=== PATIENT | male | born 1990 | race Caucasian/White ===

== ENCOUNTER 2016-09-03 10:02 | Emergency (ER) | payer OTHER ==
[2016-09-03 10:16] VITALS: BP 142/75
--- NOTE | 2016-09-03 10:22 | UC ---
Laceration HPI - HPI Summary HPI Summary: 26M presents with left pinky finger laceration today. He was cutting a frozen bagel and using a knife not intended for cutting when he cut his pinky finger. He is right handed. His last tetanus was four years ago. - History Of Current Complaint Chief Complaint: UCLaceration Stated Complaint: FINGER LACERATION Time Seen by Provider: 09/03/16 10:17 - Allergies/Home Medications Allergies/Adverse Reactions: Allergies Allergy/AdvReac Type Severity Reaction Status Date / Time No Known Allergies Allergy Verified 08/25/15 09:00 PMH/Surg Hx/FS Hx/Imm Hx Endocrine History Of: Denies: Diabetes, Thyroid Disease Cardiovascular History Of: Reports: Hypertension - NO MEDS YET Denies: Cardiac Disorders, Pacemaker/ICD Respiratory History Of: Reports: Asthma Denies: COPD GI/ History Of: Denies: Ulcer Psychological History Of: Reports: Depression - has meds, not taking it - Surgical History Surgical History: Yes Surgery Procedure, Year, and Place: tonsils - Family History Known Family History: Negative: Cardiac Disease - Social History Alcohol Use: Occasionally Alcohol Amount: ABOVE AVERAGE Substance Use Type: None Smoking Status (MU): Light Every Day Tobacco Smoker Type: Cigarettes Have You Smoked in the Last Year: Yes Household Exposure Type: Cigarettes - Immunization History Most Recent Tetanus Shot: 2012 Review of Systems Constitutional: Negative Skin: Other - laceration Respiratory: Negative Cardiovascular: Negative All Other Systems Reviewed And Are Negative: Yes Physical Exam Triage Information Reviewed: Yes Appearance: Well-Appearing Vital Signs: Initial Vital Signs Temp 97.6 F 09/03/16 10:06 Pulse 67 09/03/16 10:06 Resp 16 09/03/16 10:06 BP 142/75 09/03/16 10:06 Pulse Ox 99 09/03/16 10:06 Eyes: Positive: Conjunctiva Clear ENT: Positive: Normal ENT inspection, Pharynx normal, Nasal drainage Respiratory: Positive: Lungs clear, Normal breath sounds Cardiovascular: Positive: RRR Musculoskeletal: Positive: Strength Intact - of left hand Skin: Positive: Other - 1.5 cm laceration of left pinky finger on distal phalax Laceration Repair - Laceration Repair 1 Description: Linear Laceration Size After Repair: Length (cm) - 1.5 cn Contamination/FB Removal: none Type Injection: Digital Anesthesia Used: 1.0% Lido Cleansing Completed Via Routine Prep: Yes Irrigation With Pressure Irrigation Device: Yes Closure Material: Sutures Closure Method: Single Layer Suture Of: Skin Suture Type: Prolene - 4-0, 3 sutures placed Laceration Course/Dx - Course/Dx Course Of Treatment: 26 M presents with left pinky laceration. tetanus up to date. Full ROM. denies any foreign body, cleaned area and placed 3 suture with prolene 4-0, - Differential Dx - Laceration/Wound Differental Diagnoses: Abrasion, Avulsion, Laceration Provider Diagnoses: laceration of left pinky finger Discharge - Discharge Plan Condition: Good Disposition: HOME Patient Education Materials: Care For Your Stitches (ED) Referrals: Jae Handy MD [Primary Care Provider] - Additional Instructions: Take Tylenol or ibuprofen for pain Keep area clean and dry for 48 hours Return to ED or primary in 10-14 days to have sutures removed Return to ED if develop signs of infection such as fever, spreading redness, or pus.
[2016-09-03] MEDS ORDERED: Lidocaine 1% MPF* 2 ML VIAL ONE (10:26)
== END 2016-09-03 11:25 | disposition home or self-care (01) ==
LOC: UCEAST 10:02
DX: S61.217A Laceration without foreign body of left little finger without damage to nail, initial encounter (principal); W26.0XXA Contact with knife, initial encounter; Y93.G1 Activity, food preparation and clean up; Y92.9 Unspecified place or not applicable; F32.9 Major depressive disorder, single episode, unspecified; F10.99 Alcohol use, unspecified with unspecified alcohol-induced disorder; F17.210 Nicotine dependence, cigarettes, uncomplicated; Z91.14 Patient's other noncompliance with medication regimen
CPT/HCPCS: 12001; 99211; G0463

== ENCOUNTER 2017-01-05 23:41 | Emergency (ER) | payer OTHER ==
[2017-01-06] MEDS ORDERED: Haloperidol INJ IV/IM* 5 MG/ML AMP ONE (00:30)
[2017-01-06] MEDS ORDERED: diPHENhydraMINE IV* 50 MG/ML 1 ml VIAL (BENADRYL) ONE (00:30)
[2017-01-06] MEDS ORDERED: LORazepam INJ* 2 MG/ML 1 ML VIAL ONE (00:30)
[2017-01-06 02:05] LABS: Hematocrit 42 % (42-52); Mean Corpuscular HGB Conc 34 g/dl (31-36); Mean Corpuscular Hemoglobin 29 pg (27-31); Mean Corpuscular Volume 86 fL (80-94); Mean Platelet Volume 7 um3 (7.4-10.4); Red Blood Count 4.87 10^6/ul (4.0-5.4); Red Cell Distribution Width 14 % (10.5-15); White Blood Count 7.9 10^3/ul (3.5-10.8)
[2017-01-06 02:13] LABS: ALT 130 U/L (7-52); Albumin 4.5 g/dL (3.2-5.2); Alkaline Phosphatase 82 U/L (34-104); BUN/Creatinine Ratio 9.9 (8-20); Blood Urea Nitrogen 10 mg/dL (6-24); CO2 Carbon Dioxide 18 mmol/L (22-32); Chloride 105 mmol/L (101-111); EGFR African American 116.7 (>60); EGFR Non-African American 90.8 (>60); Globulin 3.5 g/dL (2-4); Glucose 112 mg/dL (70-100); Sodium 138 mmol/L (133-145)
[2017-01-06 02:37] LABS: Acetaminophen < 15 mcg/mL; Alcohol 236 mg/dL (<10); Salicylate < 2.50 mg/dL (<30)
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
== END 2017-01-06 06:15 | disposition home or self-care (01) ==
LOC: ED 23:41
DX: F10.129 Alcohol abuse with intoxication, unspecified (principal); Y90.7 Blood alcohol level of 200-239 mg/100 ml; I10 Essential (primary) hypertension; J45.909 Unspecified asthma, uncomplicated; G47.30 Sleep apnea, unspecified; K21.9 Gastro-esophageal reflux disease without esophagitis; F32.9 Major depressive disorder, single episode, unspecified; F17.210 Nicotine dependence, cigarettes, uncomplicated
CPT/HCPCS: 36415; 80053; 80320; 80329; 84443; 85025; 93005; 96372; 99285; G0480; J1200; J1630; J2060

== ENCOUNTER 2017-07-22 18:48 | Inpatient (IN) | payer OTHER ==
[2017-07-22] MEDS ORDERED: diPHENhydraMINE IV* 50 MG/ML 1 ml VIAL (BENADRYL) ONE (18:55)
[2017-07-22] MEDS ORDERED: Haloperidol INJ IV/IM* 5 MG/ML AMP ONE (18:55)
[2017-07-22] MEDS ORDERED: LORazepam INJ* 2 MG/ML 1 ML VIAL ONE (18:55)
[2017-07-22] MEDS ORDERED: diPHENhydraMINE IV* 50 MG/ML 1 ml VIAL (BENADRYL) IM ONE (18:58)
[2017-07-22] MEDS ORDERED: Haloperidol INJ IV/IM* 5 MG/ML AMP IM ONE (18:58)
[2017-07-22] MEDS ORDERED: LORazepam INJ* 2 MG/ML 1 ML VIAL IM ONE (18:58)
[2017-07-22 20:13] LABS: Hematocrit 41 % (42-52); Mean Corpuscular HGB Conc 34 g/dl (31-36); Mean Corpuscular Hemoglobin 30 pg (27-31); Mean Corpuscular Volume 88 fL (80-94); Mean Platelet Volume 7 um3 (7.4-10.4); Red Blood Count 4.61 10^6/ul (4.0-5.4); Red Cell Distribution Width 14 % (10.5-15); White Blood Count 9.7 10^3/ul (3.5-10.8)
[2017-07-22 20:26] LABS: ALT 229 U/L (7-52); Albumin 4.6 g/dL (3.2-5.2); Alkaline Phosphatase 85 U/L (34-104); BUN/Creatinine Ratio 11.5 (8-20); Blood Urea Nitrogen 12 mg/dL (6-24); CO2 Carbon Dioxide 19 mmol/L (22-32); Chloride 100 mmol/L (101-111); EGFR African American 111.9 (>60); Globulin 3.6 g/dL (2-4); Glucose 109 mg/dL (70-100); Sodium 132 mmol/L (133-145); Total Protein 8.2 g/dL (6.4-8.9)
[2017-07-22 20:38] LABS: Acetaminophen < 15 mcg/mL; Alcohol 214 mg/dL (<10); Salicylate < 2.50 mg/dL (<30)
[2017-07-22 20:53] LABS: TSH (Thyroid Stimulating Horm) 1.38 mcIU/mL (0.34-5.60)
[2017-07-22 21:02] LABS: AST 119 U/L (13-39); Anion Gap 13 mmol/L (2-11); Potassium 3.9 mmol/L (3.5-5.0)
--- NOTE | 2017-07-22 22:43 | ED ---
Renny Robles Thomas, scribed for Chester Page MD on 07/22/17 at 1904 . Laceration/Wound HPI - HPI Summary HPI Summary: The patient is a 27 year old male brought in by ambulance to the ED with a laceration to the left hand. Patient refuses to let the ambulance take a look at the injury. Prior to arrival, patient acted erratically and was violent. HPI limited due to level 5 caveat: Agitation/Uncooperative - History of Current Complaint Stated Complaint: 941 Time Seen by Provider: 07/22/17 18:57 Hx Obtained From: EMS Hx From Patient Unobtainable Due To: Other - Agitation, uncooperative Mechanism of Injury: Sharp/Blunt Trauma - lacteration to left hand - Allergy/Home Medications Allergies/Adverse Reactions: Allergies Allergy/AdvReac Type Severity Reaction Status Date / Time No Known Allergies Allergy Verified 08/25/15 09:00 PMH/Surg Hx/FS Hx/Imm Hx Previously Healthy: No - PMHx limited due to level 5 caveat: Agitation/ Uncooperative Endocrine/Hematology History: Denies: Hx Diabetes, Hx Thyroid Disease Cardiovascular History: Reports: Hx Hypertension - NO MEDS YET Denies: Hx Pacemaker/ICD, Other Cardiovascular Problems/Disorders Respiratory History: Reports: Hx Asthma, Hx Sleep Apnea - R/T TONSILS Denies: Hx Chronic Obstructive Pulmonary Disease (COPD) GI History: Reports: Hx Gastroesophageal Reflux Disease - ON MEDS Denies: Hx Ulcer, Other GI Disorders Musculoskeletal History: Reports: Other Musculoskeletal History - LEFT RADIAL HEAD SPIDER FX CURRENTLY Sensory History: Reports: Hx Contacts or Glasses - CONTACTS Denies: Hx Hearing Aid Opthamlomology History: Reports: Hx Contacts or Glasses - CONTACTS Neurological History: Denies: Other Neuro Impairments/Disorders Psychiatric History: Reports: Hx Depression - has meds, not taking it Denies: Hx Eating Disorder, Hx Panic Disorder, Hx of Violent Episodes Against Others - Surgical History Surgery Procedure, Year, and Place: tonsils Hx Anesthesia Reactions: No Infectious Disease History: Denies: Hx Clostridium Difficile, Hx Hepatitis, Hx Human Immunodeficiency Virus (HIV), Hx of Known/Suspected MRSA, Hx Shingles, Hx Tuberculosis, Hx Known/ Suspected VRE, Hx Known/Suspected VRSA, History Other Infectious Disease, Traveled Outside the [place] in Last 30 Days - Family History Known Family History: Negative: Cardiac Disease - Social History Alcohol Use: Occasionally Alcohol Amount: ABOVE AVERAGE Hx Substance Use: No Substance Use Type: Reports: None Hx Tobacco Use: Yes Smoking Status (MU): Light Every Day Tobacco Smoker Type: Cigarettes Have You Smoked in the Last Year: Yes Review of Systems - ROS Summary Review of Systems Summary: ROS limited due to level 5 caveat: Agitation/Uncooperative Positive: Other - laceration to left hand All Other Systems Reviewed And Are Negative: No Physical Exam - Summary Physical Exam Summary: PE limited due to level 5 caveat: Agitation/Uncooperative Triage Information Reviewed: Yes Vital Signs On Initial Exam: Initial Vitals Resp 22 07/22/17 18:55 Vital Signs Reviewed: No Completion Of Physical Exam Limited Due To: Level 5, Other - Agitation/ uncooperative Diagnostics - Vital Signs Vital Signs Temp Pulse Resp BP Pulse Ox 07/22/17 22:30 66 21 131/71 67 07/22/17 22:00 106 20 122/80 100 07/22/17 21:30 108 21 121/61 100 07/22/17 21:00 116 20 136/66 98 07/22/17 20:30 118 21 126/57 98 07/22/17 20:00 117 21 128/59 100 07/22/17 19:50 121 21 133/56 99 07/22/17 19:49 98.3 F 119 16 133/56 100 07/22/17 19:30 117 21 133/76 100 07/22/17 19:29 117 128/63 100 07/22/17 19:28 70 100 07/22/17 18:55 22 - Laboratory Lab Results: Lab Results 07/22/17 07/22/17 Range/Units 20:02 20:02 WBC 9.7 (3.5-10.8) 10^3/ul RBC 4.61 (4.0-5.4) 10^6/ul Hgb 14.0 (14.0-18.0) g/dl Hct 41 L (42-52) % MCV 88 (80-94) fL MCH 30 (27-31) pg MCHC 34 (31-36) g/dl RDW 14 (10.5-15) % Plt Count 314 (150-450) 10^3/ul MPV 7 L (7.4-10.4) um3 Neut % (Auto) 64.9 (38-83) % Lymph % (Auto) 26.9 (25-47) % Wise % (Auto) 5.4 (1-9) % Eos % (Auto) 1.7 (0-6) % Baso % (Auto) 1.1 (0-2) % Absolute Neuts (auto) 6.3 (1.5-7.7) 10^3/ul Absolute Lymphs (auto) 2.6 (1.0-4.8) 10^3/ul Absolute Monos (auto) 0.5 (0-0.8) 10^3/ul Absolute Eos (auto) 0.2 (0-0.6) 10^3/ul Absolute Basos (auto) 0.1 (0-0.2) 10^3/ul Absolute Nucleated RBC 0.01 10^3/ul Nucleated RBC % 0.1 Sodium 132 L (133-145) mmol/L Potassium 3.9 (3.5-5.0) mmol/L Chloride 100 L (101-111) mmol/L Carbon Dioxide 19 L (22-32) mmol/L Anion Gap 13 H (2-11) mmol/L BUN 12 (6-24) mg/dL Creatinine 1.04 (0.67-1.17) mg/dL Est GFR ( Amer) 111.9 (>60) Est GFR (Non-Af Amer) 87.0 (>60) BUN/Creatinine Ratio 11.5 (8-20) Glucose 109 H (70-100) mg/dL Calcium 9.0 (8.6-10.3) mg/dL Total Bilirubin 0.40 (0.2-1.0) mg/dL AST 119 H (13-39) U/L ALT 229 H (7-52) U/L Alkaline Phosphatase 85 (34-104) U/L Total Protein 8.2 (6.4-8.9) g/dL Albumin 4.6 (3.2-5.2) g/dL Globulin 3.6 (2-4) g/dL Albumin/Globulin Ratio 1.3 (1-3) TSH 1.38 (0.34-5.60) mcIU/mL Salicylates < 2.50 (<30) mg/dL Acetaminophen < 15 mcg/mL Serum Alcohol 214 H (<10) mg/dL Result Diagrams: 07/22/17 20:02 07/22/17 20:02 Lab Statement: Any lab studies that have been ordered have been reviewed, and results considered in the medical decision making process. Laceration Repair Course/Dx - Course Course Of Treatment: LACERATION REPAIN ATTEMPTED OF FINGER LACERATIONS. INITIALLY PATIENT AGREED TO LACERATION HOWEVER, AFTER CLEANING THE WOUND, HE REFUSED SUTURING. HE BECAME AGITATED AND IT WAS UNSAFE FOR THE PATIENT AND STAFF TO FURTHER ATTEMPT SUTURING AFTER THE PATIENT REFUSED. HE STATED "IT WILL HEAL ITSELF". MHE PENDING AT SHIFT CHANGE. ABX OINTMENT AND DRESSING PLACED ON THE WOUND. - Clinical Impression Provider Diagnoses: Mental health problem, Alcohol intoxication, Laceration of left ring finger, Laceration of left little finger - Critical Care Time Critical Care Time: 75-104 min Discharge - Discharge Plan Condition: Stable Disposition: OTHER Discharge Disposition Comment: . Referrals: Jae Handy MD [Primary Care Provider] - The documentation as recorded by the Renny rothman Thomas accurately reflects the service I personally performed and the decisions made by me, Chester Page MD.
[2017-07-23] MEDS ORDERED: Haloperidol INJ IV/IM* 5 MG/ML AMP ONE (01:20)
[2017-07-23] MEDS ORDERED: LORazepam INJ* 2 MG/ML 1 ML VIAL ONE (01:20)
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
[2017-07-23] MEDS ORDERED: Acetaminophen TAB* 325 MG PO PRN (11:47)
[2017-07-23] MEDS ORDERED: Haloperidol TAB* 5 MG PO PRN (11:51)
[2017-07-23] MEDS ORDERED: Cephalexin CAP* 500 MG PO ONE (12:18)
[2017-07-23] MEDS ORDERED: Tetan/Diph/Pertus SYR(Tdap)* 0.5 ML SYR(BOOSTRIX) use SYR IM ONE (12:30)
[2017-07-23] MEDS: Thiamine TAB* 100 MG TAB PO SCH (12:37)
--- NOTE | 2017-07-23 13:38 | ED ---
Progress - Consult/PCP Time Called: 09:25 Course/Dx - Course Course Of Treatment: LACERATION REPAIN ATTEMPTED OF FINGER LACERATIONS. INITIALLY PATIENT AGREED TO LACERATION HOWEVER, AFTER CLEANING THE WOUND, HE REFUSED SUTURING. HE BECAME AGITATED AND IT WAS UNSAFE FOR THE PATIENT AND STAFF TO FURTHER ATTEMPT SUTURING AFTER THE PATIENT REFUSED. HE STATED "IT WILL HEAL ITSELF". MHE PENDING AT SHIFT CHANGE. ABX OINTMENT AND DRESSING PLACED ON THE WOUND. - Diagnoses Provider Diagnoses: Mental health problem, Alcohol intoxication, Laceration of left ring finger, Laceration of left little finger - Critical Care Time Critical Care Time: 75-104 min
--- NOTE | 2017-07-23 13:49 | RAD ---
INDICATION: Laceration to the left fourth finger proximal interphalangeal joint TECHNIQUE: 3 views of the left fourth finger were obtained. FINDINGS: The bones are normal alignment. Joint spaces appear maintained. No fracture is seen. No subcutaneous foreign body is seen. IMPRESSION: NORMAL RADIOGRAPHIC SERIES OF THE LEFT RING FINGER.
[2017-07-23 13:55] LABS: Urine Bacteria Absent (Absent); Urine Bilirubin Negative (Negative); Urine Glucose Negative (Negative); Urine Nitrite Negative (Negative)
[2017-07-23 13:57] LABS: Benzodiazepine Urine Screen None Detected (None Detect)
--- NOTE | 2017-07-23 14:06 | ED ---
Progress - Consult/PCP Time Called: 09:25 Course/Dx - Course Course Of Treatment: LACERATION REPAIRED. LEFT RING FINGER. UNABLE TO DETERMINE IF THERE IS TENDON INVOLVEMENT. FINGER FROM. NO SENSATION DEFICIT. CAP REFILL NL. LAC REPAIR;. LIDOCAINE 1%. #9 5-0 PROLENE. SHURCLENS/STERILE SALINE IRRIGATED WITH 30ML. GIVEN TDAP. X-RAY NORMAL. F/U HANDS/ORTHO. - Diagnoses Provider Diagnoses: Mental health problem, Alcohol intoxication, Laceration of left ring finger, Laceration of left little finger
[2017-07-23] MEDS: Nicotine Inhaler* 10 MG AMP INH PRN (17:44)
[2017-07-23] MEDS: Nicotine GUM* 2 MG PO PRN (17:44)
[2017-07-23] MEDS: Diazepam TAB(*) 10 MG PO PRN (18:06)
--- NOTE | 2017-07-23 18:37 | CONSULT ---
Consult Consult: Mr. Valentino Lott presented to the ED by EMS yesterday intoxicated and threatening suicide. He was gradually medically cleared and had a MHE. They felt that he was appropriate for involuntary admission and he is being admitted in stable condition with a diagnosis of depression with suicidal ideation.
[2017-07-23] MEDS: Omeprazole CAP* 20 MG PO SCH (21:00)
[2017-07-24] MEDS: Diazepam TAB(*) 10 MG PO PRN (01:46)
[2017-07-24] MEDS ORDERED: LORazepam TAB(*) 1 MG ONE (06:17)
[2017-07-24] MEDS ORDERED: LORazepam IM 0-6 mg for WAM protocol IM SCH (07:00)
[2017-07-24] MEDS: Thiamine TAB* 100 MG TAB PO SCH (09:40)
[2017-07-24] MEDS: Omeprazole CAP* 20 MG PO SCH ×2 (09:40→20:36)
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
[2017-07-24] MEDS: Nicotine Inhaler* 10 MG AMP INH PRN ×4 (13:06→20:09)
[2017-07-24] MEDS: Nicotine GUM* 2 MG PO PRN ×4 (13:06→21:54)
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
[2017-07-25] MEDS: Nicotine Inhaler* 10 MG AMP INH PRN ×6 (00:05→23:12)
[2017-07-25] MEDS: Nicotine GUM* 2 MG PO PRN ×4 (02:12→21:07)
[2017-07-25] MEDS: LORazepam PO 0-6 for WAM protocol PO SCH (02:55)
[2017-07-25] MEDS: Thiamine TAB* 100 MG TAB PO SCH (09:32)
[2017-07-25] MEDS: Omeprazole CAP* 20 MG PO SCH (09:32)
[2017-07-25 09:48] LABS: Albumin 4.6 g/dL (3.2-5.2); BUN/Creatinine Ratio 11.5 (8-20); Calcium 9.9 mg/dL (8.6-10.3); EGFR African American 122.7 (>60); EGFR Non-African American 95.4 (>60); Globulin 3.4 g/dL (2-4); Potassium 3.6 mmol/L (3.5-5.0); Total Bilirubin 0.8 mg/dL (0.2-1.0)
[2017-07-25] MEDS: Diazepam TAB(*) 10 MG PO PRN (14:02)
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
[2017-07-25] MEDS: Gabapentin CAP(*) 300 MG PO SCH (20:45)
[2017-07-26] MEDS: Al Hydrox/Mg Hydrox/Simet LIQ* 30 ML UDC PO PRN (02:19)
[2017-07-26] MEDS: Diazepam TAB(*) 10 MG PO PRN (02:19)
[2017-07-26] MEDS: Thiamine TAB* 100 MG TAB PO SCH (09:05)
[2017-07-26] MEDS: Nicotine Inhaler* 10 MG AMP INH PRN ×5 (10:24→21:13)
[2017-07-26] MEDS: Nicotine GUM* 2 MG PO PRN ×4 (10:24→21:13)
--- NOTE | 2017-07-26 11:37 | PN ---
MHU: Group Therapy Note - Service Type Service Type: 19115 Group Psychotherapy - Cognitive Behavioral Group Therapy ( CBT):Patient was attentive and participatory in CBT programming this morning, and remained in good behavioral control. Patient expressed positive insights regarding relevant treatment interventions and goals.
[2017-07-26] MEDS: LORazepam PO 0-6 for WAM protocol PO SCH (12:17)
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
[2017-07-26] MEDS: Bacitracin OINTMENT* 0.5% 0.5 oz TUBE TOPICAL SCH ×2 (14:12→22:29)
--- NOTE | 2017-07-26 16:21 | PN ---
MHU: Group Therapy Note - Service Type Service Type: 32736 Group Psychotherapy - Medication Education Group: Patient was attentive and participatory in group, and remained in good behavioral control. Patient expressed positive insights regarding relevant treatment interventions. Patient stated understanding of material discussed and had appropriate questions.
[2017-07-26] MEDS: Gabapentin CAP(*) 300 MG PO SCH (21:13)
[2017-07-27] MEDS: Nicotine Inhaler* 10 MG AMP INH PRN ×6 (08:41→21:10)
[2017-07-27] MEDS: Nicotine GUM* 2 MG PO PRN ×6 (08:41→21:10)
[2017-07-27] MEDS: Thiamine TAB* 100 MG TAB PO SCH (08:42)
[2017-07-27] MEDS: Bacitracin OINTMENT* 0.5% 0.5 oz TUBE TOPICAL SCH ×3 (09:53→20:45)
[2017-07-27] MEDS: LORazepam PO 0-6 for WAM protocol PO SCH (13:08)
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
[2017-07-27] MEDS: cloNIDine TAB* 0.1 MG PO SCH ×2 (15:25→20:45)
[2017-07-27] MEDS: Al Hydrox/Mg Hydrox/Simet LIQ* 30 ML UDC PO PRN (16:16)
[2017-07-27 17:45] LABS: Albumin 4.7 g/dL (3.2-5.2); BUN/Creatinine Ratio 12.8 (8-20); Calcium 9.7 mg/dL (8.6-10.3); EGFR African American 125.8 (>60); EGFR Non-African American 97.8 (>60); Globulin 3.5 g/dL (2-4); Potassium 4.2 mmol/L (3.5-5.0); Total Bilirubin 0.4 mg/dL (0.2-1.0); Total Protein 8.2 g/dL (6.4-8.9)
[2017-07-27] MEDS: Gabapentin CAP(*) 300 MG PO SCH (20:45)
[2017-07-28] MEDS: Gabapentin CAP(*) 300 MG PO PRN (04:25)
[2017-07-28] MEDS: Nicotine Inhaler* 10 MG AMP INH PRN ×7 (07:35→22:07)
[2017-07-28] MEDS: Nicotine GUM* 2 MG PO PRN ×7 (07:35→22:07)
[2017-07-28] MEDS: cloNIDine TAB* 0.1 MG PO SCH ×2 (08:48→20:15)
[2017-07-28] MEDS: Thiamine TAB* 100 MG TAB PO SCH (08:48)
[2017-07-28] MEDS: Bacitracin OINTMENT* 0.5% 0.5 oz TUBE TOPICAL SCH ×2 (09:01→13:05)
[2017-07-28] MEDS: Al Hydrox/Mg Hydrox/Simet LIQ* 30 ML UDC PO PRN (17:27)
[2017-07-28] MEDS: Gabapentin CAP(*) 300 MG PO SCH (20:14)
[2017-07-28] MEDS: LORazepam PO 0-6 for WAM protocol PO SCH (23:30)
[2017-07-29] MEDS: Bacitracin OINTMENT* 0.5% 0.5 oz TUBE TOPICAL SCH ×3 (00:56→13:46)
[2017-07-29] MEDS: Nicotine Inhaler* 10 MG AMP INH PRN ×7 (05:20→23:23)
[2017-07-29] MEDS: cloNIDine TAB* 0.1 MG PO SCH ×2 (08:55→21:22)
[2017-07-29] MEDS: Thiamine TAB* 100 MG TAB PO SCH (08:55)
[2017-07-29] MEDS: Nicotine GUM* 2 MG PO PRN ×6 (10:02→23:23)
[2017-07-29] MEDS ORDERED: Ibuprofen TAB* 600 MG PO PRN (14:34)
[2017-07-29] MEDS: Cephalexin CAP* 500 MG PO SCH ×2 (16:52→21:21)
[2017-07-29] MEDS: Al Hydrox/Mg Hydrox/Simet LIQ* 30 ML UDC PO PRN ×2 (19:12→23:28)
[2017-07-29] MEDS: Gabapentin CAP(*) 300 MG PO SCH (21:21)
[2017-07-30] MEDS: Bacitracin OINTMENT* 0.5% 0.5 oz TUBE TOPICAL SCH ×4 (00:12→21:45)
[2017-07-30] MEDS: Thiamine TAB* 100 MG TAB PO SCH (08:52)
[2017-07-30] MEDS: cloNIDine TAB* 0.1 MG PO SCH ×2 (08:52→21:45)
[2017-07-30] MEDS: Cephalexin CAP* 500 MG PO SCH ×4 (08:52→21:45)
[2017-07-30] MEDS: Nicotine GUM* 2 MG PO PRN ×5 (08:56→23:17)
[2017-07-30] MEDS: Nicotine Inhaler* 10 MG AMP INH PRN ×5 (08:56→23:17)
[2017-07-30] MEDS: Al Hydrox/Mg Hydrox/Simet LIQ* 30 ML UDC PO PRN (08:56)
--- NOTE | 2017-07-30 16:54 | PN ---
Subjective - Subjective Subjective: Mood is good, compliant with taking clonidine, c/o RUQ pain and nausea after eating. He denies SI/HI or A/VH, endorses mild craving for alcohol. Per staff, he is adherent to unit's routines. Objective - Appearance Appearance: Well Developed/Nourished Dysmorphic Features: No Hygiene: Normal Grooming: Well Kept - Behavior Psychomotor Activities: Normal Exhibits Abnormal Movement: No - Attitude and Relatedness Attitude and Relatedness: Cooperative Eye Contact: Fair - Speech Quality: Unpressured Latencies: Normal Quantity: Appropriate - Mood Patient's Decription of Mood: "Okay" - Affect Observed Affect: Fair Affect Consistent with: Euthymia - Thought Process Patient's Thought Process: Coherent, Goal Directed Thought Content: No Passive Wish, No Suicidal Planning, No Homicidal Ideation, No Paranoid Ideation - Sensorium Experiencing Hallucinations: No, Sensorium is Clear - Level of Consciousness Level of Consciousness: Alert Orientation: Yes Intact - Impulse Control Impulse Control: Intact - Insight and Judgement Insight and Judgement: Poor - Group Participation Particating in Group Activities: Yes - Medication Management Medication Management Adherence: Yes Assessment - Assessment Merits Inpatient Hospitalization: Consolidate Improvements, For Discharge Planning Inpatient DSM-IV Dx: alcohol use d/o; tobacco use d/o; r/o alcohol induced mood d/o Clinical Impression: progressing well through alcohol detox, tolerating Clonidine, afreable to door to door transfer to [facility] [place] on Sunday. Plan - Plan Treatment Plan: Name: JOHN DAVIS Birthdate: 1990 [id number] Repeat CMP; LFTs, Lipase in AM. Medications: Current Medications Al Hydrox/Mg Hydrox/Simethicone (Maalox Plus*) 30 ml PO Q4H PRN PRN Reason: INDIGESTION Last Admin: 07/30/17 08:56 Dose: 30 ml Bacitracin (Bacitracin Ointment*) 1 applic TOPICAL TID [facility] Last Admin: 07/30/17 14:36 Dose: Not Given Cephalexin HCl (Keflex Cap*) 500 mg PO QID [facility] Stop: 08/08/17 13:01 Last Admin: 07/30/17 16:40 Dose: 500 mg Clonidine HCl (Catapres Tab*) 0.1 mg PO BID [facility] Last Admin: 07/30/17 08:52 Dose: 0.1 mg Gabapentin (Neurontin Cap(*)) 300 mg PO BEDTIME [facility] Last Admin: 07/29/17 21:21 Dose: 300 mg Gabapentin (Neurontin Cap(*)) 300 mg PO BID PRN PRN Reason: AGITATION/ANXIETY Last Admin: 07/28/17 04:25 Dose: 300 mg Haloperidol (Haldol Tab*) 5 mg PO Q6H PRN PRN Reason: AGITATION Last Admin: 07/24/17 01:46 Dose: 5 mg Ibuprofen (Motrin Tab*) 600 mg PO Q6H PRN PRN Reason: PAIN Lorazepam (Ativan Tab(*)) 0 - 6 mg PO .PER [facility] PARAMETERS TYE PRN Reason: Protocol Last Admin: 07/28/17 23:30 Dose: 2 mg Lorazepam (Ativan Inj*) 0 - 6 mg IM .PER [facility] PROTOCOL TYE PRN Reason: Protocol Nicotine (Nicotine Inhaler*) 10 mg INH Q2H PRN PRN Reason: CRAVING Last Admin: 07/30/17 16:42 Dose: 10 mg Nicotine Polacrilex (Nicotine Gum*) 2 mg PO Q2H PRN PRN Reason: CRAVING Last Admin: 07/30/17 16:42 Dose: 2 mg Thiamine HCl (Vitamin B-1 Tab*) 100 mg PO DAILY [facility] Last Admin: 07/30/17 08:52 Dose: 100 mg - Discharge Plan Discharge Plan: Drug/Alcohol Rehab Outpatient Program: TBD
[2017-07-30] MEDS: Gabapentin CAP(*) 300 MG PO SCH (21:45)
[2017-07-30] MEDS: Gabapentin CAP(*) 300 MG PO PRN (23:44)
[2017-07-31] MEDS: Cephalexin CAP* 500 MG PO SCH ×4 (08:54→21:25)
[2017-07-31] MEDS: cloNIDine TAB* 0.1 MG PO SCH ×2 (08:55→21:25)
[2017-07-31] MEDS: Nicotine GUM* 2 MG PO PRN ×6 (08:55→21:12)
[2017-07-31] MEDS: Thiamine TAB* 100 MG TAB PO SCH (08:55)
[2017-07-31] MEDS: Nicotine Inhaler* 10 MG AMP INH PRN ×6 (08:55→21:12)
[2017-07-31] MEDS: Bacitracin OINTMENT* 0.5% 0.5 oz TUBE TOPICAL SCH ×3 (08:58→22:17)
[2017-07-31 09:35] LABS: Albumin 4.5 g/dL (3.2-5.2); Calcium 9.7 mg/dL (8.6-10.3); EGFR African American 128.9 (>60); EGFR Non-African American 100.2 (>60); Globulin 3.4 g/dL (2-4); Potassium 4.2 mmol/L (3.5-5.0); Total Bilirubin 0.4 mg/dL (0.2-1.0); Total Protein 7.9 g/dL (6.4-8.9)
--- NOTE | 2017-07-31 12:03 | PN ---
MHU: Group Therapy Note - Service Type Service Type: 72977 Group Psychotherapy - Cognitive Behavioral Group Therapy ( CBT):Patient was attentive and participatory in CBT programming this morning, and remained in good behavioral control. Patient expressed positive insights regarding relevant treatment interventions and goals.
[2017-07-31] MEDS: Al Hydrox/Mg Hydrox/Simet LIQ* 30 ML UDC PO PRN (14:22)
[2017-07-31] MEDS: Gabapentin CAP(*) 300 MG PO PRN (16:13)
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
[2017-07-31] MEDS: Gabapentin CAP(*) 300 MG PO SCH (21:25)
[2017-08-01] MEDS: Nicotine Inhaler* 10 MG AMP INH PRN ×2 (00:35→09:39)
[2017-08-01] MEDS: Nicotine GUM* 2 MG PO PRN ×2 (00:35→09:39)
[2017-08-01] MEDS: Gabapentin CAP(*) 300 MG PO PRN (00:41)
[2017-08-01 08:09] VITALS: BP 121/75
[2017-08-01] MEDS: Thiamine TAB* 100 MG TAB PO SCH (08:50)
[2017-08-01] MEDS: cloNIDine TAB* 0.1 MG PO SCH (08:50)
[2017-08-01] MEDS: Cephalexin CAP* 500 MG PO SCH (08:50)
[2017-08-01] MEDS: Bacitracin OINTMENT* 0.5% 0.5 oz TUBE TOPICAL SCH ×2 (08:51→10:06)
[2017-08-01] MEDS: Al Hydrox/Mg Hydrox/Simet LIQ* 30 ML UDC PO PRN (11:03)
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
== END 2017-08-01 11:15 | DRG 897 ==
LOC: ED 18:48 → BSU 07-23 12:49
PROVIDERS: ADMIT Psychiatry & Neurology Psychiatry; ATTEND Psychiatry & Neurology Psychiatry
PROC: 0HQGXZZ Repair Left Hand Skin, External Approach (ICD-10-PCS; principal; 2017-07-31)
PROC: GZHZZZZ Group Psychotherapy (ICD-10-PCS; 2017-07-31)
DX: F10.94 Alcohol use, unspecified with alcohol-induced mood disorder (principal); R45.851 Suicidal ideations; Y90.7 Blood alcohol level of 200-239 mg/100 ml; R20.0 Anesthesia of skin; I10 Essential (primary) hypertension; F41.9 Anxiety disorder, unspecified; S11.91XA Laceration without foreign body of unspecified part of neck, initial encounter; S61.215A Laceration without foreign body of left ring finger without damage to nail, initial encounter; J45.909 Unspecified asthma, uncomplicated; R74.8 Abnormal levels of other serum enzymes; G47.30 Sleep apnea, unspecified; K21.9 Gastro-esophageal reflux disease without esophagitis; F32.9 Major depressive disorder, single episode, unspecified; F17.210 Nicotine dependence, cigarettes, uncomplicated; S61.217A Laceration without foreign body of left little finger without damage to nail, initial encounter
CPT/HCPCS: 36415; 73140; 80053; 80307; 80320; 80329; 81003; 81015; 82140; 83690; 84443; 85025; 86706; 86803; 87340; 90715; 90853; 99222; 99231; 99232; 99238; A9270-GY; G0480; J1200; J1630; J2060

== ENCOUNTER 2018-02-05 08:09 | Day surgery (SDC) | payer OTHER ==
--- NOTE | 2018-02-04 03:46 | HP ---
PREOPERATIVE HISTORY AND PHYSICAL: DATE OF SURGERY/ADMISSION: 02/05/18 DATE OF OFFICE VISIT/ENCOUNTER: 01/30/18 ATTENDING SURGEON: Jelly Pihllips MD * (DICTATED BY LISBETH JOYA) PROCEDURE: Excision mass, right wrist. CHIEF COMPLAINT: Mass, right wrist. HISTORY OF PRESENT ILLNESS: This is a 27-year-old male who complains of a painful mass on the volar aspect of his right wrist at the base of the thenar eminence that has been present for approximately a year. He would like to have it removed. It bothers him when he is playing billiards or working out. He rates his pain as 7/10. He does not take any specific medications for this problem. He denies any numbness or tingling associated with it. He denies any known injury. He has consented to proceed with surgical excision of the mass. PAST MEDICAL HISTORY: 1. Hypertension. 2. Asthma. 3. Depression/anxiety. 4. ADD. PAST SURGICAL HISTORY: 1. Tonsillectomy and adenoidectomy. 2. [place] tooth extraction. CURRENT MEDICATIONS: 1. Albuterol sulfate every 4 to 6 hours p.r.n. 2. Amphetamine/dextroamphetamine ER 1 daily. 3. Buspirone HCl 15 mg b.i.d. 4. Clonidine HCl 0.1 mg t.i.d. 5. Gabapentin 300 mg b.i.d. p.r.n. 6. Naltrexone HCl 50 mg 1 tab daily. 7. Prazosin HCl 2 mg daily. 8. ProAir HFA 108, two puffs 1 to 2 times a day p.r.n. ALLERGIES: No known drug allergies. FAMILY MEDICAL HISTORY: Noncontributory. SOCIAL HISTORY: The patient recently graduated [employer] in criminal justice. 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 He does admit to occasional smoking on a social basis for approximately the past 3 years. He previously smoked up to a pack per day. He denies recreational drug use and does not drink alcohol. REVIEW OF SYSTEMS: General: Negative for fevers, chills, night sweats, unexplained weight loss/gain. No known anesthesia problems. HEENT: Negative for headache, lightheadedness, syncopal episodes. Integumentary: Negative for abrasions, lesions, open wounds. Cardiothoracic: Negative for hypertension, chest pain, palpitations, edema. Respiratory: Negative for shortness of breath with exertion, chronic cough, wheezing. GI: Negative for nausea, vomiting, diarrhea, constipation, GERD. : Negative for nocturia, urinary frequency, urgency, history of UTIs, kidney problems. Musculoskeletal: Positive for current complaint. Negative for chronic or intermittent back pain or history of fractures. Neurological: Negative for paresthesias, numbness, history of seizure, stroke, poor balance. Positive for anxiety/depression. Endocrine: Negative for diabetes and thyroid issues. Hematologic: Negative for easy bruising, anemia, bleeding disorders, or history of DVT. Infectious Disease: Negative for history of MRSA, hepatitis C, HIV. PHYSICAL EXAMINATION GENERAL: Well-developed, well-nourished 27-year-old male, in no acute distress. VITAL SIGNS: Height 5 feet 5-1/2 inches, weight 209 pounds. Pulse rate 100, blood pressure 110/58. HEENT: Normocephalic, atraumatic. Pupils are equal, round, and reactive to light and accommodation. Extraocular movements are intact. Throat is clear. NECK: Supple. No palpable lymph nodes. PULMONARY: Lungs are clear to auscultation bilaterally. No wheezes, rales, or rhonchi. CARDIOVASCULAR: Regular rate and rhythm. S1, S2. No murmurs, rubs, or gallops. No edema. ABDOMEN: Positive bowel sounds, soft, nontender. NEUROLOGICAL: Alert and oriented x3. Cranial nerves II through XII are intact. Sensation is intact to light touch. MUSCULOSKELETAL: On exam of his right wrist, there is a tender mass on the volar aspect of his palm, at the base of the thenar eminence. It is tender to palpation. It is firm, subcutaneous, and mobile. He can make a full fist. Skin is intact. Neurovascular function is intact. IMAGING STUDIES: X-rays, AP, lateral, and oblique of the right wrist shows perhaps an old ulnar styloid fracture and otherwise looks normal. ASSESSMENT: Right wrist mass. PLAN: The patient is scheduled to undergo an excision mass, right wrist, with Dr. Phillips on 02/05/18. He will return 10 days postop for followup and suture removal. He will use btih-zes-[id number] medications for postoperative pain management. LISBETH JOYA [id number]/[facility] #: [id number] [facility] CENTERSheree
[~2018-02-05 08:09] MED LIST: Buffered Lidocaine 0.9% SYRIN* 5 ML/SYR SYRINGE INTRADERM ONE; Lidocaine 1%* 5 ML VIAL ONE
[2018-02-05] MEDS ORDERED: Lidocaine 2% PF * 5 ML VIAL ONE (09:49)
[2018-02-05] MEDS ORDERED: Propofol* 10 MG/ML 20 ML BTL IV PUSH ONE (09:49)
[2018-02-05] MEDS ORDERED: Naloxone* 0.4 MG/ML 1 ML VIAL IV PRN (09:50)
[2018-02-05 10:12] VITALS: BP 103/68
--- NOTE | 2018-02-05 13:19 | OP ---
CC: Dr. Phillips.* OPERATIVE REPORT: DATE OF OPERATION: 02/05/18 - SAL DATE OF : [birth year] SURGEON: Jelly Phillips MD. WOMEN DESIGNER: LISBETH Valenzuela. ANESTHESIOLOGIST: Joe Gay DO. ANESTHESIA: Local MAC. PRE-OP DIAGNOSIS: Right wrist mass. POST-OP DIAGNOSIS: Right wrist mass. OPERATIVE PROCEDURE: Removal of right wrist mass. ESTIMATED BLOOD LOSS: Zero. TOURNIQUET TIME: About 15 minutes. INDICATIONS FOR PROCEDURE: Marvel was 27-year-old male with a painful mass at the base of his right thenar eminence. He presents for removal. DESCRIPTION OF PROCEDURE: The patient was brought to the operating room, was given a sedation anesthetic and a local infiltration with 10 cc of 1% plain lidocaine overlying the wrist mass. The skin of his right hand and forearm was prepped and draped in the usual sterile fashion. The hand and forearm were exsanguinated and tourniquet elevated to 250 mmHg. A chevron incision was made centered over the mass. We dissected bluntly through the subcutaneous tissue. The mass was underlying the thenar musculature, so I carefully dissected longitudinally through the muscle fibers. The mass clinically appeared to be a ganglion. It was traced with its stalk down to the STT joint and removed with a small portion of the joint. The edges of the capsule were cauterized with a Bovie. The wound was irrigated and skin edges reapproximated with 4-0 nylon suture. The wound was dressed with Xeroform, 4x4, Webril, and an Kendall wrap. The patient tolerated the procedure well and was brought to the recovery room in good condition. [id number]/[facility] #: [id number] [facility]
== END 2018-02-05 10:30 | disposition home or self-care (01) ==
LOC: OREAST 08:09
PROVIDERS: ATTEND Orthopaedic Surgery
DX: M67.431 Ganglion, right wrist (principal); I10 Essential (primary) hypertension; J45.909 Unspecified asthma, uncomplicated; F41.8 Other specified anxiety disorders; F98.8 Other specified behavioral and emotional disorders with onset usually occurring in childhood and adolescence; Z72.0 Tobacco use; F10.21 Alcohol dependence, in remission
CPT/HCPCS: 88305; J2704

== ENCOUNTER 2019-08-21 07:08 | Emergency (ER) | payer OTHER ==
[2019-08-21 07:22] VITALS: BP 126/65
--- NOTE | 2019-08-21 07:40 | UC ---
Respiratory Complaint HPI - HPI Summary HPI Summary: 29-year-old male comes in with a chief complaint of cough chest congestion shortness breath. Patient does have a history of asthma and sleep apnea. Symptoms initially started out with upper respiratory tract infection symptoms with a runny nose sore throat and it's moved down into his chest. Cough is the worst at night when he is using his sleep apnea machine. He has used some over- the-counter medications which don't help much with the symptoms. He had a trace of pedal edema. No calf pain. No fevers. He has seen some yellow sputum coughing. No complaint of any ear pain or sore throat at this time. - History of Current Complaint Chief Complaint: UCRespiratory Stated Complaint: COUGH Time Seen by Provider: 08/21/19 07:21 Pain Intensity: 0 - Allergies/Home Medications Allergies/Adverse Reactions: Allergies Allergy/AdvReac Type Severity Reaction Status Date / Time No Known Allergies Allergy Verified 08/21/19 07:23 Home Medications: Home Medications cloNIDine TAB* [Catapres 0.1 MG TAB*] 0.1 mg PO TID 08/21/19 [History Confirmed 08/21/19] PMH/Surg Hx/FS Hx/Imm Hx Previously Healthy: Yes Respiratory History: Asthma Other Respiratory History: SLEEP APNEA Other Psychological History: ADD - Surgical History Surgical History: Yes Surgery Procedure, Year, and Place: Tonsils and adenoids 2015. GANGLION CYST REMOVED FROM WRIST - Family History Known Family History: Negative: Cardiac Disease - Social History Alcohol Use: None Alcohol Amount: ABOVE AVERAGE Substance Use Type: None Smoking Status (MU): Light Every Day Tobacco Smoker Type: Cigarettes, eCigarettes Amount Used/How Often: 1 ppd for last 30 days, and used no other tobacco products. Rarely now Have You Smoked in the Last Year: Yes Household Exposure Type: Cigarettes - Immunization History Most Recent Tetanus Shot: 2012 Review of Systems All Other Systems Reviewed And Are Negative: Yes Constitutional: Positive: Other - SEE HPI Skin: Positive: Negative Eyes: Positive: Negative ENT: Positive: Nasal Discharge, Other - SEE HPI Respiratory: Positive: Shortness Of Breath, Cough, Other - SEE HPI Cardiovascular: Positive: Negative Gastrointestinal: Positive: Negative Motor: Positive: Negative Neurovascular: Positive: Negative Musculoskeletal: Positive: Edema. Negative: Calf Tenderness Neurological: Positive: Negative Psychological: Positive: Negative Is Patient Immunocompromised?: No Physical Exam Triage Information Reviewed: Yes Appearance: Well-Appearing, No Pain Distress, Well-Nourished Vital Signs: Initial Vital Signs Temp 97.9 F 08/21/19 07:17 Pulse 70 08/21/19 07:17 Resp 16 08/21/19 07:17 BP 126/65 08/21/19 07:17 Pulse Ox 98 08/21/19 07:17 Vital Signs Reviewed: Yes Eye Exam: Normal Eyes: Positive: Conjunctiva Clear ENT: Positive: Pharynx normal, TM red - LEFT Neck: Positive: Supple Respiratory: Positive: Lungs clear, Normal breath sounds, No respiratory distress Cardiovascular: Positive: RRR Musculoskeletal: Positive: Strength Intact, ROM Intact, No Edema - NO CALF TENDERNESS Neurological: Positive: Alert, Muscle Tone Normal Psychological: Positive: Normal Response To Family, Age Appropriate Behavior Skin Exam: Normal Respiratory Course/Dx - Course Course Of Treatment: Handbag Frames Inspector: Shaun De Paz Daniel, ([id number]) Retail Greeter: CHAD ( NUANCE) Report Date: 08/21/2019 07:55:00 Report Status: Final ====== Start of Report Content Patient Name: JOHN DECKER Medical Record#: [id number] Ordering Physician: Chester Page MD Acct.#: [id number] : 1990 Age: 29 Sex: M Location: [facility] Exam Date: 08/21/19 0735 ADM Status: REG ER Order Information: CHEST PA LAT 2 S Accession Number: [id number] CPT: 03696 HISTORY: cough,sob COMPARISONS: None relevant available at the time of dictation. VIEWS: 4: Frontal dual-energy and lateral views of the chest. FINDINGS: CARDIOMEDIASTINAL SILHOUETTE: The cardiomediastinal silhouette is normal. NOÉ: The noé are normal. PLEURA: The costophrenic angles are sharp. No pleural abnormalities are noted. LUNG PARENCHYMA: The lungs are clear. ABDOMEN: The upper abdomen is clear. There is no subphrenic gas. BONES AND SOFT TISSUES: No bone or soft tissue abnormalities are noted. OTHER: None. IMPRESSION: NO ACTIVE CARDIOPULMONARY DISEASE. <Electronically signed by Shaun De Paz MD in OV> 08/21/19750 Dictated By: Shaun De Paz MD Dictated Date/Time: 08/21/19750 Transcribed Date/Time: 08/21/19750 Copy to: CC:Jae Handy MD; Chester Page MD Imaging - [facility] Imaging - [facility] [address] [address] ph ) ph ([phone]) ph ([phone]) End of Report Content ==== I discussed the x-rays with the patient and his father. No signs of pneumonia at this time. Patient feels like he did improve some with the albuterol. Plan will be doxycycline because his symptoms been going on for more than 10 days and he is getting worse rather than better and also prednisone for 5 days. Patient follow-up his primary care doctor in go the emergency department if worse or any questions or concerns. - Differential Dx/Diagnosis Provider Diagnosis: Asthma with bronchitis Discharge ED - Sign-Out/Discharge Documenting (check all that apply): Patient Departure All imaging exams completed and their final reports reviewed: Yes - Discharge Plan Condition: Stable Disposition: HOME Prescriptions: DOXYcycline CAP(*) [DOXYcycline 100MG CAP(*)] 100 mg PO BID #20 cap predniSONE 20 mg TAB [Deltasone 20 MG TAB*] 40 mg PO DAILY #10 tab Patient Education Materials: Asthma (ED), Acute Bronchitis (ED) Forms: *Work Release Referrals: Jae Handy MD [Primary Care Provider] - Additional Instructions: FOLLOW UP WITH YOUR DOCTOR IF NOT COMPLETELY IMPROVED. Use ixfk-fwn-wpvzdmq guaifenesin to help thin the secretions. Tmun-jku-swpvfly dextromethorphan can also help with the cough. GET REEVALUATED SOONER IF NOT IMPROVED OR WORSE OR ANY QUESTIONS OR CONCERNS. - Billing Disposition and Condition Condition: STABLE Disposition: Home
[2019-08-21] MEDS ORDERED: Albuterol 2.5 MG/3 ML NEB.SOL* (0.083%) INH ONE (07:44)
== END 2019-08-21 08:54 | disposition home or self-care (01) ==
LOC: UCEAST 07:08
DX: J45.909 Unspecified asthma, uncomplicated (principal); R09.81 Nasal congestion; F17.210 Nicotine dependence, cigarettes, uncomplicated
CPT/HCPCS: 71046; 99212; G0463

== ENCOUNTER 2019-09-22 07:33 | Emergency (ER) | payer OTHER ==
--- OUTSIDE RECORDS SUMMARY | 2019-09-22 07:41 | XMS REPORT | Continuity of Care Document ---
:1990 External Reference #:[id number] Author Name Ellen Rich M.D. (transmitted by agent of provider Mechelle Trotter) Address [address] [place] [id number] Care Team Providers Name Role Phone Jae Handy MD - Family Medicine Care Team Information Director Of Leadership Development Problems Active Problems Provider Date Obstructive sleep apnea syndrome Alayna Bonilla DNP, RN, INTERCEPTOR OPERATOR- Onset: Hypersomnia Alayna Bonilla DNP, RN, INTERCEPTOR OPERATOR- Onset: 11/21/2017 Derangement of knee Ellen Rich M.D. Onset: 04/25/2019 Knee joint effusion Ellen Rich M.D. Onset: 06/13/2019 Social History Type Date Description Comments Sex Unknown Tobacco Use Start: Unknown Patient is a current Smoker since age cigarette smoker, 18. Recently smokes some days cutting down 11/21/17 Smoking Status Reviewed: 09/01/19 Patient is a current Smoker since age cigarette smoker, 18. Recently smokes some days cutting down 11/21/17 ETOH Use Currently consumes alcohol Tobacco Use Start: Unknown Patient is a current smoker, smokes some days Recreational Drug Use Denies Drug Use Exercise Type/Frequency Exercises regularly 2x weeks Allergies, Adverse Reactions, Alerts Description No Known Drug Allergies Medications Active Medications SIG Qnty Indications Ordering Provider Date Meloxicam 1 tablet by 14tabs M25.562 Efe Treviño MD 04/25/2019 15mg Tablets mouth daily. Amphetamine-Dextroamp 1 qd Unknown het ER Caps ER 24HR Prazosin HCL qs Jae Handy MD 2mg Capsules Gabapentin 1 tab bid prn Siri Lopez, 300mg N.P.P Capsules Naltrexone HCL 1 tab qd Jae Handy MD 50mg Tablets Clonidine HCL 1 tab tid prn Jae Handy MD 0.1mg Tablets Buspirone HCL 1 tab bid Jae Handy MD 15mg Tablets Proair HFA 2 puffs 1-2x a Jae Handy MD 108(90Base) day prn mcg/Act Aerosol Medications Administered in Office Medication SIG Qnty Indications Ordering Provider Date Depomedrol 40MG Ellen Rich M.D. 04/25/2019 Injection Immunizations Description No Information Available Vital Signs Date Vital Result Comment 09/01/2019 3:08pm Height 67.5 inches 5'7.50" Weight 212.00 lb Heart Rate 84 /min BP Systolic 118 mmHg BP Diastolic 64 mmHg Respiratory Rate 18 /min Pain Level 8 BMI (Body Mass Index) 32.7 kg/m2 06/13/2019 3:31pm Height 67.5 inches 5'7.50" Weight 212.00 lb Heart Rate 82 /min BP Systolic Sitting 130 mmHg BP Diastolic Sitting 82 mmHg Respiratory Rate 16 /min Pain Level 3 BMI (Body Mass Index) 32.7 kg/m2 Results Description No Information Available Procedures Date Code Description Status 09/01/2019 17151 Inject/Drain Joint/Bursa Major W/O US Completed 04/25/2019 88474 Inject/Drain Joint/Bursa Major W/O US Completed Medical Devices Description No Information Available Encounters Type Date Location Provider Dx Diagnosis Office Visit 06/13/2019 [facility] Ellen Rich, M25.562 Pain in left knee 3:00p at [facility] M22.2x2 Patellofemoral disorders, left knee M25.462 Effusion, left knee Office Visit 04/25/2019 10:00a [facility] M23.8x2 Other internal Orthopedics at [facility] derangements of [place] left knee M25.562 Pain in left knee M25.462 Effusion, left knee M22.2x2 Patellofemoral disorders, left knee M23.301 Oth meniscus derangements, unsp lateral meniscus, left knee Assessments Date Code Description Provider 09/01/2019 M25.462 Effusion, left knee Ellen Rich M.D. 09/01/2019 M22.2x2 Patellofemoral disorders, left knee Ellen Rich M.D. 09/01/2019 M25.562 Pain in left knee EllenTheodore Ledesma.DMine 09/01/2019 M23.8x2 Other internal derangements of left knee Ellen Rich M.D. 06/13/2019 M25.562 Pain in left knee Ellenjourdan Rich, M.DMine 06/13/2019 M22.2x2 Patellofemoral disorders, left knee Ellen Rich M.D. 06/13/2019 M25.462 Effusion, left knee Ellen Rich M.D. 04/25/2019 M23.8x2 Other internal derangements of left knee Ellen Rich M.D. 04/25/2019 M25.562 Pain in left knee Ellen Rich M.D. 04/25/2019 M25.462 Effusion, left knee Ellen Rich M.D. 04/25/2019 M22.2x2 Patellofemoral disorders, left knee Ellen Rich M.D. 04/25/2019 M23.301 Other meniscus derangements, unspecified Ellen Rich M.D. lateral meniscus, left knee Plan of Treatment Future Appointment(s):11/03/2019 3:15 pm - Ellen Rich M.D. at [facility] at [facility]y1309/01/2019 - Ellen Rich M.D.M25.462 Effusion, left kneeFollow up:Follow up: As maqnqhA66.2x2 Patellofemoral disorders, left kneeM25.562 Pain in left kneeM23.8x2 Other internal derangements of left knee Functional Status Description No Information Available Mental Status Description No Information Available Referrals Description No Information Available
--- OUTSIDE RECORDS SUMMARY | 2019-09-22 07:41 | XMS REPORT | Continuity of Care Document ---
:1990 External Reference #:[id number] Author Name Ellen Rich M.D. (transmitted by agent of provider Mechelle Trotter) Address [address] [place] [id number] Care Team Providers Name Role Phone Jae Handy MD - Family Medicine Care Team Information Varnisher [phone] Problems Active Problems Provider Date Obstructive sleep apnea syndrome Alayna Bonilla DNP, RN, MASON TENDER- Onset: Hypersomnia Alayna Bonilla DNP, RN, MASON TENDER- Onset: 11/21/2017 Derangement of knee Ellen Rich [...] Available Procedures Date Code Description Status 09/01/2019 80298 Inject/Drain Joint/Bursa Major W/O US Completed 04/25/2019 49958 Inject/Drain Joint/Bursa Major W/O US Completed Medical Devices Description No Information Available Encounters Type Date Location Provider Dx Diagnosis Office Visit 06/13/2019 [facility] Ellen Rich, M25.562 Pain in left knee 3:00p at [facility] M22.2x2 Patellofemoral disorders, left knee M25.462 Effusion, left knee Office Visit 04/25/2019 10:00a [facility] M23.8x2 Other internal Orthopedics at [facility] derangements of [place] left knee M25.562 Pain in left knee [...] Ellen Rich M.D. at [facility] at Gkvkps3809/01/2019 - Ellen Rich M.D.M25.462 Effusion, left kneeFollow up:Follow up: As zipwmwS05.2x2 Patellofemoral disorders, left kneeM25.562 Pain in left kneeM23.8x2 Other internal derangements of left knee Functional Status Description No Information Available Mental Status Description No Information Available Referrals Description No Information Available
[2019-09-22 07:49] VITALS: BP 113/63
--- NOTE | 2019-09-22 08:02 | UC ---
Respiratory Complaint HPI - HPI Summary HPI Summary: 29 yo with history of asthma, treated with doxy and prednisone on 08/21/19 with improvement. He was about 1 week cough free post treatment, but has had a gradual increase in cough over the past days, disruptive of sleep. Has not been able to use his CPAP at all. Missed work Sunday and today due to poor sleep. No fever, sore throat, ear pain or signs of systemic illness. Has never used an inhaled steroid and does not use an aerochamber. - History of Current Complaint Chief Complaint: UCRespiratory Stated Complaint: COUGH AND RESP COMPLAINT Time Seen by Provider: 09/22/19 07:51 Hx Obtained From: Patient Onset/Duration: Gradual Onset, Lasting Days Timing: Intermittent Episodes Severity Initially: Moderate Severity Currently: Moderate Pain Intensity: 0 Character: Cough: Nonproductive Aggravating Factors: Recumbent Position Alleviating Factors: Bronchodilator Associated Signs And Symptoms: Positive: Dyspnea, Wheezing. Negative: URI, Nasal Congestion, Hoarseness, Sinus Discomfort - Risk Factors Pulmonary Embolism Risk Factors: Negative Cardiac Risk Factors: Negative Pseudomonas Risk Factors: Negative Tuberculosis Risk Factors: Negative - Allergies/Home Medications Allergies/Adverse Reactions: Allergies Allergy/AdvReac Type Severity Reaction Status Date / Time No Known Allergies Allergy Verified 08/21/19 07:23 PMH/Surg Hx/FS Hx/Imm Hx Respiratory History: Asthma, Other - sleep apnea Psychological History: Anxiety, Other - ADD; takes naltrexone to prevent alcohol abuse - Surgical History Surgical History: Yes Surgery Procedure, Year, and Place: wisdom teeth Tonsils and adenoids 2015. GANGLION CYST REMOVED FROM WRIST - Family History Known Family History: Negative: Cardiac Disease - Social History Occupation: Employed Full-time Lives: With Family Alcohol Use: None Alcohol Amount: ABOVE AVERAGE Substance Use Type: None Substance Use Comment - Amount & Last Used: vapes Smoking Status (MU): Light Every Day Tobacco Smoker Type: Cigarettes, eCigarettes Amount Used/How Often: 1 ppd for last 30 days, and used no other tobacco products. Rarely now Have You Smoked in the Last Year: Yes Household Exposure Type: Cigarettes - Immunization History Most Recent Tetanus Shot: 2012 Review of Systems All Other Systems Reviewed And Are Negative: Yes Constitutional: Positive: Fatigue Skin: Positive: Negative Eyes: Positive: Negative ENT: Positive: Negative Respiratory: Positive: Shortness Of Breath, Cough Cardiovascular: Positive: Negative Gastrointestinal: Positive: Nausea - with bouts of coughing Genitourinary: Positive: Negative Motor: Positive: Negative Neurovascular: Positive: Negative Musculoskeletal: Positive: Negative Neurological/Mental Status: Positive: Negative Psychological: Positive: Negative Is Patient Immunocompromised?: No Physical Exam Triage Information Reviewed: Yes Appearance: Well-Appearing, No Pain Distress Vital Signs: Initial Vital Signs Temp 98.4 F 09/22/19 07:41 Pulse 80 09/22/19 07:41 Resp 20 09/22/19 07:41 BP 113/63 09/22/19 07:41 Pulse Ox 98 09/22/19 07:41 Eyes: Positive: Conjunctiva Clear ENT: Positive: Pharynx normal, TMs normal Neck: Positive: Supple, Nontender, No Lymphadenopathy Respiratory: Positive: No respiratory distress, Wheezing - mild late expiratory wheeze. Cardiovascular: Positive: RRR, No Murmur Musculoskeletal Exam: Normal Neurological Exam: Normal Psychological Exam: Normal Skin Exam: Normal Respiratory Course/Dx - Course Course Of Treatment: No findings to suggest bacterial infection. Will rx prednisone and send rx for ICS. Renew albuterol and advised that use of aerochamber will improve his delivery. - Differential Dx/Diagnosis Differential Diagnosis/HQI/PQRI: Asthma, Bronchitis Provider Diagnosis: Asthma Discharge ED - Sign-Out/Discharge Documenting (check all that apply): Patient Departure All imaging exams completed and their final reports reviewed: No Studies - Discharge Plan Condition: Stable Disposition: HOME Prescriptions: Albuterol HFA INHALER* [Ventolin HFA Inhaler*] 2 puff INH Q6H PRN #1 mdi PRN Reason: Wheezing Fluticasone HFA 110 mcg(NF) [Flovent HFA 110 mcg(NF)] 2 puff INH BID #1 mdi predniSONE 20 mg TAB [Deltasone 20 MG TAB*] 40 mg PO DAILY #10 tab Patient Education Materials: Asthma (ED) Forms: *Work Release Referrals: Jae Handy MD [Primary Care Provider] - Additional Instructions: Your cough is most likely due to uncontrolled asthma. Use of an aerochamber will improve the delivery of your medications. Take prednisone once daily with food. Use flovent 2 puffs twice daily until you are re-evaluated by Dr. Handy. RINSE YOUR MOUTH post use to prevent voice hoarseness and the development of thrush. Swish and spit cold water. Use albuterol as needed to relieve cough and wheeze. - Billing Disposition and Condition Condition: STABLE Disposition: Home
== END 2019-09-22 08:27 | disposition home or self-care (01) ==
LOC: UCEAST 07:33
DX: J45.909 Unspecified asthma, uncomplicated (principal); F17.210 Nicotine dependence, cigarettes, uncomplicated; F17.290 Nicotine dependence, other tobacco product, uncomplicated; R53.83 Other fatigue; R11.0 Nausea
CPT/HCPCS: 99211; G0463